=== PATIENT | male | born 1960 | race Native Hawaiian/Other Pacific Islander ===

== ENCOUNTER 2017-07-29 11:05 | Outpatient (CLI) | payer BC ==
[2017-07-29 11:28] LABS: PLATELET COUNT 76 K/uL (142-355)
[2017-07-29 11:36] LABS: POTASSIUM 3.4 mmol/L (3.6-5.2)
== END 2017-07-29 19:05 | disposition home or self-care (01) ==
LOC: LABW 11:05
PROVIDERS: Internal Medicine
DX: J40 Bronchitis, not specified as acute or chronic (principal)
CPT/HCPCS: 36415; 80053; 81000; 85027; 86615